=== PATIENT | male | born 1950 | race Caucasian/White ===

== ENCOUNTER → 2019-01-29 | Outpatient (CLI) | payer MEDICARE, OTHER ==
--- NOTE | 2019-01-29 11:37 | RADIOLOGY REPORT (SQ) ---
EXAM DESCRIPTION: CHEST PA/LATERAL COMPLETED DATE/TIME: 01/29/2019 10:52 am REASON FOR STUDY: ENCOUNTER FOR PREPROCEDURAL RESPIRATORY EXAMINATION COMPARISON: None. EXAM PARAMETERS: NUMBER OF VIEWS: two views TECHNIQUE: Digital Frontal and Lateral radiographic views of the chest acquired. RADIATION DOSE: NA LIMITATIONS: none FINDINGS: LUNGS AND PLEURA: No opacities, masses or pneumothorax. No pleural effusion. MEDIASTINUM AND HILAR STRUCTURES: No masses or contour abnormalities. HEART AND VASCULAR STRUCTURES: Normal heart size. Ectatic atherosclerotic aorta. BONES: No acute findings. HARDWARE: None in the chest. OTHER: No other significant finding. IMPRESSION: No evidence of acute cardiopulmonary process. TECHNICAL DOCUMENTATION: JOB ID: [id number] [employer]- All Rights Reserved Reading location - IP/workstation name: [email or web address]
[2019-01-29 12:36] LABS: ABSOLUTE EOSINOPHILS # (AUTO) 0.2 10^3/uL (0.0-0.6); ABSOLUTE LYMPHOCYTES (AUTO) 0.9 10^3/uL (0.5-4.7); ABSOLUTE MONOCYTES (AUTO) 0.4 10^3/uL (0.1-1.4); ABSOLUTE NEUT (AUTO) 2.5 10^3/uL (1.7-8.2); BASOPHILS % (AUTO) 1.1 % (0-2); EOSINOPHILS % (AUTO) 5.4 % (0-6); HEMATOCRIT 36.6 % (37.9-51.0); HEMOGLOBIN 12.3 g/dL (13.5-17.0); LYMPHOCYTES % (AUTO) 23.1 % (13-45); MEAN CORPUSCULAR HEMOGLOBIN 29.8 pg (27.0-33.4); MEAN CORPUSCULAR HGB CONC 33.5 g/dL (32.0-36.0); MEAN CORPUSCULAR VOLUME 89 fl (80-97); MONOCYTES % (AUTO) 9.4 % (3-13); PLATELET COUNT 165 10^3/uL (150-450); RED BLOOD COUNT 4.12 10^6/uL (4.35-5.55); RED CELL DISTRIBUTION WIDTH 13.6 % (11.5-14.0); TOTAL CELLS COUNTED % (AUTO) 100 %; WHITE BLOOD COUNT 4.1 10^3/uL (4.0-10.5)
[2019-01-29 13:07] LABS: ALANINE AMINOTRANSFERASE 19 U/L (21-72); ALBUMIN 3.5 g/dL (3.5-5.0); ALKALINE PHOSPHATASE 55 U/L (38-126); ASPARTATE AMINO TRANSFERASE 19 U/L (17-59); BILIRUBIN,DIRECT 0.3 mg/dL (0.0-0.4); BILIRUBIN,TOTAL 0.5 mg/dL (0.2-1.3); BLOOD UREA NITROGEN 17 mg/dL (7-20); GLUCOSE 95 mg/dL (75-110); POTASSIUM 4.5 mmol/L (3.6-5.0); TOTAL PROTEIN 6.2 g/dL (6.3-8.2)
[2019-01-29 13:12] LABS: CARBON DIOXIDE 28 mmol/L (22-30); CHLORIDE 110 mmol/L (98-107); SODIUM 141.6 mmol/L (137-145)
[2019-01-29 13:17] LABS: ANION GAP 4 (5-19)
--- NOTE | 2019-01-29 21:54 | EKG REPORT ---
SEVERITY:- BORDERLINE ECG - LEFT AXIS DEVIATION SINUS BRADYCARDIA WITH SINUS ARRHYTHMIA. : Confirmed by: Ruth Eric MD 29-Jan-2019 21:52:41
== END ==
LOC: OD 09:52
PROVIDERS: ATTEND Podiatrist
DX: Z01.812 Encounter for preprocedural laboratory examination (principal); Z01.811 Encounter for preprocedural respiratory examination; Z01.810 Encounter for preprocedural cardiovascular examination; M20.42 Other hammer toe(s) (acquired), left foot; L91.8 Other hypertrophic disorders of the skin; M79.673 Pain in unspecified foot
CPT/HCPCS: 36415; 71046; 80053; 85025; 93005; 93010

== ENCOUNTER 2019-05-14 11:14 | Day surgery (SDC) | payer MEDICARE, OTHER ==
[~2019-05-14 11:14] MED LIST: CHONDR SU A NA/HYALUR INTRAOC KIT (SURGICARE) ONE; EPINEPHRINE INJ/PF 1 MG/1 ML AMPULE ONE; KETOROLAC TROMETHAMINE 0.45% 4 DROP/0.4 ML DROPERETTE OS PRN; LIDOCAINE 1%/PHENYLEPHRINE 1.5% 1 ML VIAL ONE
[2019-05-14] MEDS: TETRACAINE HCL 0.5% OPH SOLN 4 ML OS PRN ×3 (11:39→12:14)
[2019-05-14] MEDS: TROPICAMIDE 1% OPH SOLN 3 ML OS PRN ×3 (11:39→11:57)
[2019-05-14] MEDS: BESIFLOXACIN HCL 0.6% OPH SUSP 5 ML BOTTLE OS PRN ×4 (11:40→12:32)
[2019-05-14] MEDS: CYCLOPENTOLATE 0.2%/PHENYLEPHRINE 1% OPH SOLN 2 ML OS PRN ×3 (11:40→11:57)
[2019-05-14] MEDS ORDERED: MIDAZOLAM 2 MG/2 ML INJ ONE (11:57)
[2019-05-14] MEDS ORDERED: FENTANYL CITRATE INJ/PF 100 MCG/2 ML AMPUL ONE (11:57)
[2019-05-14] MEDS: DORZOLAMIDE HCL 2%/TIMOLOL MALEAT 0.5% OPH SOLN 10 ML OS PRN ×2 (12:27→12:32)
[2019-05-14] MEDS: TOBRAMYCIN SULFATE/DEXAMETH OPH OINTMENT 3.5 GM ONE ×2 (12:28→12:32)
== END 2019-05-14 13:14 | disposition home or self-care (01) ==
LOC: SC 11:14
PROVIDERS: ATTEND Ophthalmology
DX: H25.12 Age-related nuclear cataract, left eye (principal); E11.9 Type 2 diabetes mellitus without complications; I49.9 Cardiac arrhythmia, unspecified; N40.0 Benign prostatic hyperplasia without lower urinary tract symptoms; Z87.891 Personal history of nicotine dependence
CPT/HCPCS: 82962; 00142; 66984; J2250; J3490 ×3; A9270; J0171; J3010; J2370; 142; V2632

== ENCOUNTER 2019-05-28 08:06 | Day surgery (SDC) | payer MEDICARE, OTHER ==
[~2019-05-28 08:06] MED LIST changes: -CHONDR SU A NA/HYALUR INTRAOC KIT (SURGICARE) ONE; -EPINEPHRINE INJ/PF 1 MG/1 ML AMPULE ONE; +KETOROLAC TROMETHAMINE 0.45% 4 DROP/0.4 ML DROPERETTE OD PRN; -KETOROLAC TROMETHAMINE 0.45% 4 DROP/0.4 ML DROPERETTE OS PRN; -LIDOCAINE 1%/PHENYLEPHRINE 1.5% 1 ML VIAL ONE
[2019-05-28] MEDS: TETRACAINE HCL 0.5% OPH SOLN 4 ML OD PRN ×4 (08:34→09:08)
[2019-05-28] MEDS: TROPICAMIDE 1% OPH SOLN 3 ML OD PRN ×3 (08:35→08:57)
[2019-05-28] MEDS: BESIFLOXACIN HCL 0.6% OPH SUSP 5 ML BOTTLE OD PRN ×4 (08:35→09:30)
[2019-05-28] MEDS: CYCLOPENTOLATE 0.2%/PHENYLEPHRINE 1% OPH SOLN 2 ML OD PRN ×3 (08:35→08:57)
[2019-05-28] MEDS ORDERED: MIDAZOLAM 2 MG/2 ML INJ ONE (09:11)
[2019-05-28] MEDS: CHONDR SU A NA/HYALUR INTRAOC KIT (SURGICARE) ONE ×2 (09:20)
[2019-05-28] MEDS: EPINEPHRINE INJ/PF 1 MG/1 ML AMPULE ONE ×2 (09:20)
[2019-05-28] MEDS: LIDOCAINE 1% INJ-PF (10 MG/ML) 30 ML SDV ONE ×2 (09:20)
[2019-05-28] MEDS: DORZOLAMIDE HCL 2%/TIMOLOL MALEAT 0.5% OPH SOLN 10 ML OD PRN ×2 (09:30)
[2019-05-28] MEDS: TOBRAMYCIN SULFATE/DEXAMETH OPH OINTMENT 3.5 GM ONE ×2 (09:30)
== END 2019-05-28 10:06 | disposition home or self-care (01) ==
LOC: SC 08:06
PROVIDERS: ATTEND Ophthalmology
DX: H25.11 Age-related nuclear cataract, right eye (principal); Z98.42 Cataract extraction status, left eye; E11.9 Type 2 diabetes mellitus without complications; N40.0 Benign prostatic hyperplasia without lower urinary tract symptoms; I49.9 Cardiac arrhythmia, unspecified; Z87.891 Personal history of nicotine dependence; Z79.899 Other long term (current) drug therapy
CPT/HCPCS: 66984; 00142; J2250; J3490 ×4; A9270; J0171; 142